=== PATIENT | male | born 1940 | race Caucasian/White ===

== ENCOUNTER 2024-09-21 06:24 | Day surgery (SDC) | payer MEDICARE ==
[~2024-09-21] VITALS: Ht 182.9 cm; Wt 79.6 kg
[2024-09-21] MEDS ORDERED: Loratadine10 MG (07:00)
[2024-09-21] MEDS ORDERED: ASPI81CH (07:00)
[2024-09-21] MEDS ORDERED: METO25 (07:01)
[2024-09-21] MEDS ORDERED: ROSUVASTATIN (07:02)
[2024-09-21] MEDS ORDERED: Lactated Ringer's 1,000 ML IV ONE ×2 (07:30→07:41)
[2024-09-21] MEDS ORDERED: propofoL 50 ML IV ONE (07:30)
== END 2024-09-21 09:10 | disposition home or self-care (01) ==
LOC: ORSCSDS 06:24
PROVIDERS: Internal Medicine Gastroenterology
PROC: 0DJ08ZZ Inspection of Upper Intestinal Tract, Via Natural or Artificial Opening Endoscopic (ICD-10-PCS; principal; 2024-09-21 08:00)
DX: R13.10 Dysphagia, unspecified (principal); Z85.819 Personal history of malignant neoplasm of unspecified site of lip, oral cavity, and pharynx; R63.4 Abnormal weight loss; K21.9 Gastro-esophageal reflux disease without esophagitis; K59.00 Constipation, unspecified; Z79.82 Long term (current) use of aspirin; Z79.899 Other long term (current) drug therapy
CPT/HCPCS: C1769; J2704; J7120

== ENCOUNTER 2024-10-30 16:55 | Inpatient (IN) | payer MEDICARE ==
[~2024-10-30] VITALS: Ht 180.3 cm; Wt 74.8 kg
[~2024-10-30 16:55] MED LIST: ASPI81CH; Loratadine10 MG; METO25; ROSUVASTATIN
[2024-10-30 17:37] LABS: BASOPHILS ABSOLUTE AUTO 0.06 K/mm3 (0.00-0.23); BASOPHILS PERCENT AUTO 1 % (0-2); EOSINOPHILS ABSOLUTE AUTO 0.21 K/mm3 (0.00-0.68); EOSINOPHILS PERCENT AUTO 2 % (0-6); Hematocrit 34.4 % (37.0-53.0); Hemoglobin 11.6 g/dL (13.5-17.5); IMMATURE GRAN ABSOLUTE AUTO 0.03 K/mm3 (0.00-0.10); IMMATURE GRAN PERCENT AUTO 0 % (0-1); LYMPHOCYTES PERCENT AUTO 11 % (21-46); MONOCYTES ABSOLUTE AUTO 0.73 K/mm3 (0.16-1.47); MONOCYTES PERCENT AUTO 7 % (4-13); Mean Corpuscular HGB 31.4 pg (26.0-34.0); Mean Corpuscular HGB Conc 33.7 g/dL (31.5-36.5); Mean Corpuscular Volume 93 fL (80-100); Mean Platelet Volume 9.7 fL (9.1-12.4); NEUTROPHILS PERCENT AUTO 78 % (41-73); Platelet Count 290 K/mm3 (150-400); RDW Coefficient Variation 12.2 % (11.7-14.2); RDW Standard Deviation 41.9 fL (35.1-46.3); Red Blood Cell Count 3.69 M/mm3 (4.30-5.90); White Blood Cell Count 9.83 K/mm3 (4.00-11.30)
[2024-10-30 17:52] LABS: Albumin, Blood 3.4 g/dL (3.4-5.0); Albumin/Globulin Ratio 0.8 (0.8-1.8); Bilirubin, Total 0.4 mg/dL (0.1-1.0); Bun/Creatinine Ratio 23.2 (12.0-20.0); Calcium, Blood 10.2 mg/dL (8.5-10.1); Creatinine, Blood 1.12 mg/dL (0.60-1.20); Globulin, Blood 4.3 g/dL (2.2-4.0); Potassium, Blood 3.7 mmol/L (3.5-5.5); Total Protein, Blood 7.7 g/dL (6.4-8.2)
[2024-10-30 18:10] LABS: International Normalized Ratio 1.04; Prothrombin Time Results 11.1 Sec (9.7-11.5)
[2024-10-30 18:16] LABS: Free Thyroxine 0.96 ng/dL (0.70-1.60); Magnesium, Blood 1.9 mg/dL (1.6-2.4)
[2024-10-30 18:19] LABS: Thyroid Stimulating Hormone 1.45 uIU/mL (0.360-4.800)
[2024-10-30 18:37] LABS: CORONAVIRUS COVID-19 AG Negative (NEGATIVE); INFLUENZA A AG Negative (NEGATIVE); INFLUENZA B AG Negative (NEGATIVE)
[2024-10-30] MEDS ORDERED: Ketorolac Tromethamine 15mg Vial IV ONE (20:00)
[2024-10-30 20:02] LABS: Source, Urine Clean Catch
[2024-10-30 20:14] LABS: Bilirubin, Urine Neg (Neg); Blood, Urine Neg (Neg); Glucose Qualitative, Urine Neg (Neg); Ketones, Urine Neg (Neg); Leukocyte Esterase, Urine Neg (Neg); Nitrite, Urine Neg (Neg); Protein, Urine Neg (Neg); Urobilinogen, Urine 1+ (Normal)
[2024-10-30 20:15] LABS: Appearance, Urine Clear (Clear); Color, Urine Yellow (P-Yellow)
[2024-10-30] MEDS ORDERED: Acetaminophen 325 MG TABLET PO PRN (21:05)
[2024-10-30] MEDS ORDERED: Ondansetron HCl 2 MG / ML 2ML Vial IV PRN (21:05)
[2024-10-30] MEDS ORDERED: FLU VACC TS2024-25(6MOS UP)/PF 45 MCG/0.5 ML SYRINGE IM ONE (21:10)
[2024-10-30] MEDS ORDERED: Lactated Ringer's 1,000 ML IV SCH (22:00)
[2024-10-30 22:55] VITALS: BP 127/74
[2024-10-30] MEDS ORDERED: Potassium Phosphate Dibasic 15 MM in Dextrose 5% 250 ML IV ONE (23:40)
[2024-10-31 05:20] VITALS: BP 119/65
[2024-10-31 06:51] LABS: BASOPHILS ABSOLUTE AUTO 0.08 K/mm3 (0.00-0.23); BASOPHILS PERCENT AUTO 1 % (0-2); EOSINOPHILS ABSOLUTE AUTO 0.28 K/mm3 (0.00-0.68); EOSINOPHILS PERCENT AUTO 4 % (0-6); Hematocrit 30.3 % (37.0-53.0); Hemoglobin 10.3 g/dL (13.5-17.5); IMMATURE GRAN ABSOLUTE AUTO 0.02 K/mm3 (0.00-0.10); IMMATURE GRAN PERCENT AUTO 0 % (0-1); LYMPHOCYTES ABSOLUTE AUTO 1.09 K/mm3 (0.84-5.20); LYMPHOCYTES PERCENT AUTO 15 % (21-46); MONOCYTES ABSOLUTE AUTO 0.73 K/mm3 (0.16-1.47); MONOCYTES PERCENT AUTO 10 % (4-13); Mean Corpuscular HGB 32.1 pg (26.0-34.0); Mean Corpuscular Volume 94 fL (80-100); Mean Platelet Volume 10.1 fL (9.1-12.4); NEUTROPHILS ABSOLUTE AUTO 5.03 K/mm3 (1.96-9.15); NEUTROPHILS PERCENT AUTO 70 % (41-73); Platelet Count 310 K/mm3 (150-400); RDW Coefficient Variation 12.5 % (11.7-14.2); RDW Standard Deviation 43.2 fL (35.1-46.3); Red Blood Cell Count 3.21 M/mm3 (4.30-5.90); White Blood Cell Count 7.23 K/mm3 (4.00-11.30)
[2024-10-31 07:10] VITALS: BP 117/63
[2024-10-31 07:19] LABS: Alanine Aminotransfer (ALT/SGP 14 U/L (12-78); Albumin, Blood 3.3 g/dL (3.4-5.0); Albumin/Globulin Ratio 0.8 (0.8-1.8); Alk Phos 85 U/L (50-136); Anion Gap 9 mmol/L (3-11); Aspartate Aminotrans (AST/SGOT 13 U/L (12-37); Bilirubin, Total 0.4 mg/dL (0.1-1.0); Blood Urea Nitrogen 25 mg/dL (8-24); Bun/Creatinine Ratio 22.9 (12.0-20.0); CHOL/HDL RATIO 2.2; CO2, Blood 27 mmol/L (21-32); Calcium, Blood 10.3 mg/dL (8.5-10.1); Chloride, Blood 104 mmol/L (98-108); Cholesterol 95 mg/dL (50-200); Creatinine, Blood 1.09 mg/dL (0.60-1.20); Glomerular Filtration Rate 68 (60-); Glucose, Blood 100 mg/dL (70-99); HDL Cholesterol 43 mg/dL (>39); LDL/HDL RATIO 0.9; Low Density Lipoprotein Chol 39 mg/dL (0-110); Magnesium, Blood 2.1 mg/dL (1.6-2.4); Phosphorus, Blood 3.9 mg/dL (2.5-4.9); Sodium, Blood 136 mmol/L (136-145); Total Protein, Blood 7.3 g/dL (6.4-8.2); Triglycerides 67 mg/dL (30-160); Very Low Density Lipoprot Chol 13 mg/dL (6-32)
[2024-10-31] MEDS ORDERED: Enoxaparin 40 MG/0.4 ML SYR SC SCH (09:00)
[2024-10-31] MEDS ORDERED: Aspirin 81 MG Chew PO SCH (09:00)
[2024-10-31] MEDS ORDERED: Clopidogrel Bisulfate 75 MG Tab PO SCH (09:00)
[2024-10-31] MEDS ORDERED: Loratadine 10 MG Tab PO SCH (09:00)
[2024-10-31] MEDS ORDERED: Atorvastatin 40 MG Tab PO SCH (09:00)
[2024-10-31] MEDS ORDERED: Metoprolol Tartrate 25 MG Tab PO SCH (09:00)
[2024-10-31] MEDS ORDERED: LORazepam 2 MG/ML 1ML Injection IV ONE (09:15)
--- NOTE | 2024-10-31 14:07 | NUR ---
BEDSIDE SWALLOW SCREEN COMPLETED AT BEDSIDE. PT GIVEN WATER VIA SPOON. PT WAS ABLE TO SWALLOW BUT IMMEDIATELY BEGAN COUGHING UP FLUIDS AND SPITTING OUT. PT REPORTED WATER WOULD NOT GO DOWN. PT REPORTED HE CAN TAKE IN SMALL SIPS OF ENSURE AT HOME WITHOUT COUGHING OR CHOKING BUT IT TAKES HIM ALL DAY TO DRINK THE ENSURES. ATTEMPTED SMALL BITE OF APPLESAUCE TO SEE IF HE COULD DO BETTER WITH THICKER SUBSTANCES BUT AGAIN HE IMMEDIATELY COUGHED UP APPLESAUCE AND SPIT OUT AFTER SWALLOWING. PT ADVISED HE WILL NEED TO REMAIN NPO ACCEPT ORAL SWABS UNTIL EVALUATED BY SPEECH THERAPY FOR FURTHER RECOMMENDATIONS. PT V/U. SPOUSE WAS ALSO PRESENT. DISCUSSED GOALS OF CARE WITH PT. PT REPORTS HE WAS TOLD HE HAS A LUNG MASS AND WANTS TO FOLLOW-UP WITH ONCOLOGY BEFORE HE MAKES ANY DECISIONS. PT ALSO REPORTED HE MAY NEED A PEG TUBE PER WHAT ER DOCTOR HAD TOLD HIM. PT REPORTED HE HAD A PEG TUBE IN THE PAST. HE STATED HE WANTS TO KNOW WHAT ONCOLOGY RECOMMENDS PRIOR TO DECIDING IF HE WANTS A PEG TUBE. DR. ZAMARRIPA NOTIFIED OF BEDSIDE SWALLOW EVAL RESULTS. ORDERS PLACED.
[2024-10-31 15:22] VITALS: BP 119/49
[2024-10-31] MEDS ORDERED: HYDROmorphone HCl/Pf 1MG SYR IV PRN (17:00)
--- NOTE | 2024-10-31 18:11 | NUR ---
SHIFT SUMMARY: PT IS A/O X 4, SBA, PLEASANT AND COOPERATIVE WITH CARE. PT REPORTS PAIN TO LEFT SIDE OF FACE NECK AND STATES IT IS MORE LIKE AN EARACHE. HE REPORTS TORADOL GIVEN IN ER WAS INEFFECTIVE. ORDER RECEIVED FOR DILAUDID BUT PT DECLINED STATING IT'S NOT BAD ENOUGH AT THIS TIME FOR DILAUDID. PT HAS HAD IMPROVED SPEECH THROUGHOUT THE DAY. SLURRED SPEECH HAS IMPROVED. PT DECLINED NG TUBE TONIGHT STATING HE WANTS TO WAIT TO SEE WHAT SPEECH EVAL REVEALS TOMORROW BEFORE DECIDING TO GET NG TUBE FOR NUTRITION. PT USING ORAL SWABS FOR COMFORT. PT ABLE TO MAKE NEEDS KNOWN AT THIS TIME.
[2024-10-31 19:41] VITALS: BP 126/80
[2024-10-31] MEDS ORDERED: HydrALAZINE HCl 20 MG / ML 1ML Vial IV PRN (21:50)
[2024-11-01 05:14] VITALS: BP 97/58
--- NOTE | 2024-11-01 05:43 | NUR ---
SHIFT SUMMARY A&0X4, NPO , APPEARED TO BE RESTING WELL OVERNIGHT ON ROUNDS. VOIDED X2, AMBULATES W/ UNSTEADY GAIT-CALLS APPROPRIATELY FOR SBA ( TOOK CANE HOME), NO NEW NEURO CHANGES NOTED S/P LT SIDED ISCHEMIC CVA. C/O MILD PAIN IN LT NECK/FACE AREA R/T CA MASS & REFUSED TYLENOL SUPP OR IV DIALUDID FOR PAIN, UPSET THAT WE WONT LET HIM TAKE MEDS BY MOUTH ALTHOUGH VOICED UNDERSTANDING OF EXPLAINED RISKS AND RATIONAL FOR NPO. NSR ON TELEMETRY, CONTINUOUS OXIMETERY-SATS WDL, HAD A 14 BEAT RUN OF SVT ONCE AROUND 0330 PER INSTRUCTIONAL ASSISTANT. (ASYMPTOMATIC/SLEEPING) OTHERWISE NSR W/ HR 80s TO LOW 90s. LAST POTASSIUM & MG LEVELS NOTED TO BE WNL HAD A SOFT BP W/ EARLY A.M. VS OF 97/58. PT HAD VOICED THAT HE WANTS MORE INFORMATION REGARDING HIS PROGNOSIS BEFORE HE DECIDES WHETHER OR NOT TO GO FORWARD WITH A FEEDING TUBE.
[2024-11-01 05:55] LABS: BASOPHILS ABSOLUTE AUTO 0.07 K/mm3 (0.00-0.23); BASOPHILS PERCENT AUTO 1 % (0-2); EOSINOPHILS PERCENT AUTO 3 % (0-6); Hematocrit 33.3 % (37.0-53.0); Hemoglobin 11.2 g/dL (13.5-17.5); IMMATURE GRAN ABSOLUTE AUTO 0.02 K/mm3 (0.00-0.10); IMMATURE GRAN PERCENT AUTO 0 % (0-1); LYMPHOCYTES ABSOLUTE AUTO 0.96 K/mm3 (0.84-5.20); LYMPHOCYTES PERCENT AUTO 14 % (21-46); MONOCYTES ABSOLUTE AUTO 0.65 K/mm3 (0.16-1.47); MONOCYTES PERCENT AUTO 9 % (4-13); Mean Corpuscular HGB 31.5 pg (26.0-34.0); Mean Corpuscular HGB Conc 33.6 g/dL (31.5-36.5); Mean Corpuscular Volume 94 fL (80-100); NEUTROPHILS ABSOLUTE AUTO 5.22 K/mm3 (1.96-9.15); NEUTROPHILS PERCENT AUTO 73 % (41-73); Platelet Count 289 K/mm3 (150-400); RDW Coefficient Variation 12.1 % (11.7-14.2); RDW Standard Deviation 41.9 fL (35.1-46.3); Red Blood Cell Count 3.56 M/mm3 (4.30-5.90); White Blood Cell Count 7.12 K/mm3 (4.00-11.30)
[2024-11-01 06:32] LABS: Albumin, Blood 3.2 g/dL (3.4-5.0); Albumin/Globulin Ratio 0.7 (0.8-1.8); Bilirubin, Total 0.5 mg/dL (0.1-1.0); Calcium, Blood 10.2 mg/dL (8.5-10.1); Creatinine, Blood 0.95 mg/dL (0.60-1.20); Globulin, Blood 4.4 g/dL (2.2-4.0); Potassium, Blood 3.7 mmol/L (3.5-5.5); Total Protein, Blood 7.6 g/dL (6.4-8.2)
[2024-11-01 07:33] VITALS: BP 98/61
[2024-11-01] MEDS ORDERED: Aspirin 300 MG Supp PR SCH (09:00)
[2024-11-01] MEDS ORDERED: NS 1,000 ML IV SCH (12:05)
[2024-11-01 15:03] VITALS: BP 91/55
--- NOTE | 2024-11-01 17:59 | NUR ---
SUMMARY NO ACUTE CHANGES THIS SHIFT. IV FLUIDS RESTARTED, NO NEW DEFICITS NOTED, PT REFUSED SHOWER, PT IS OPTING FOR PEG TUB, NPO.
[2024-11-01 20:02] VITALS: BP 106/53
--- NOTE | 2024-11-02 04:00 | NUR ---
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 MAKES NEEDS KNOWN TO STAFF. USES CALL LIGHT APPROPRIATELY. PT ADMITTED FOR L SIDED ISCHEMIC CVA. PT NOTED TO HAVE R FACIAL DRROP. PT NPO. NS INFUSING AT 150ML/HR. PLAN IS TO GET PEG TUBE FOR NUTRITION. PT TO IMAGING FOR CT CHEST/ ABD / PELVIS WITH CONTRAST. NSR ON TELEMETRY. PRN IV DILAUDED AND ZOFRAN GIVEN X1, EFFEECTIVE. VSS. PT INDEPENDENT WITH BED MOBILITY, SBA WITH TRANSFERS. NO ACUTE CHANGES NOTED THIS SHIFT. BED IN LOWEST POSITION. CALL LIGHT IN REACH. CARES CONTINUE ORDERED.
[2024-11-02 04:40] VITALS: BP 102/51
[2024-11-02 06:04] LABS: BASOPHILS ABSOLUTE AUTO 0.05 K/mm3 (0.00-0.23); BASOPHILS PERCENT AUTO 1 % (0-2); EOSINOPHILS ABSOLUTE AUTO 0.07 K/mm3 (0.00-0.68); EOSINOPHILS PERCENT AUTO 1 % (0-6); Hematocrit 31.9 % (37.0-53.0); Hemoglobin 10.7 g/dL (13.5-17.5); IMMATURE GRAN ABSOLUTE AUTO 0.01 K/mm3 (0.00-0.10); IMMATURE GRAN PERCENT AUTO 0 % (0-1); LYMPHOCYTES ABSOLUTE AUTO 0.98 K/mm3 (0.84-5.20); LYMPHOCYTES PERCENT AUTO 14 % (21-46); MONOCYTES ABSOLUTE AUTO 0.64 K/mm3 (0.16-1.47); MONOCYTES PERCENT AUTO 9 % (4-13); Mean Corpuscular HGB 31.8 pg (26.0-34.0); Mean Corpuscular HGB Conc 33.5 g/dL (31.5-36.5); Mean Corpuscular Volume 95 fL (80-100); Mean Platelet Volume 9.7 fL (9.1-12.4); NEUTROPHILS ABSOLUTE AUTO 5.33 K/mm3 (1.96-9.15); NEUTROPHILS PERCENT AUTO 75 % (41-73); Platelet Count 277 K/mm3 (150-400); RDW Coefficient Variation 12.2 % (11.7-14.2); RDW Standard Deviation 42.2 fL (35.1-46.3); Red Blood Cell Count 3.36 M/mm3 (4.30-5.90); White Blood Cell Count 7.08 K/mm3 (4.00-11.30)
[2024-11-02 06:38] LABS: Anion Gap 12 mmol/L (3-11); Blood Urea Nitrogen 22 mg/dL (8-24); Bun/Creatinine Ratio 23.2 (12.0-20.0); CO2, Blood 24 mmol/L (21-32); Calcium, Blood 9.9 mg/dL (8.5-10.1); Chloride, Blood 108 mmol/L (98-108); Creatinine, Blood 0.95 mg/dL (0.60-1.20); Glomerular Filtration Rate 80 (60-); Glucose, Blood 101 mg/dL (70-99); Phosphorus, Blood 2.7 mg/dL (2.5-4.9); Sodium, Blood 140 mmol/L (136-145)
[2024-11-02 08:06] VITALS: BP 120/64
--- NOTE | 2024-11-02 12:27 | NUR ---
AT REQUEST FROM DR ARTEAGA, CALLED DR STAUFFER OFC. HE TO COME SEE PT.
[2024-11-02] MEDS ORDERED: HYDROMORPHO1 MG/119 PO (15:03)
--- NOTE | 2024-11-02 15:37 | NUR ---
GOALS OF CARE VISIT THIS PC RN JOINED VISIT WHILE DR. STAUFFER WAS IN ROOM WITH PT AND PT'S SPOUSE REVIEWING DX, PROGNOSIS AND TX OPTIONS. MALIKA REPORTS NAUSEA HAS BEEN DIFFICULT TO MANAGE. HE HAS UNINTENTIONAL WT LOSS OVER THE LAST COUPLE OF MONTHS. DIFFICULTY SWALLOWING AND HAS BEEN FOLLOWING A VERY SOFT - FULL LIQUID DIET. GIVES FOOD INTAKE HAS CONSISTED OF HIGH CALORIE BOOST SHAKES, MASHED POTATOES, PUDDINGS, ECT. CONSTANT HEADACHED IN THE LAST MONTH. HEADACHES WERE MANAGED WITH TYLENOL AND IBUPROFEN FOR AWHILE. PRIOR TO ADMISSION TO HOSPITAL, NEXT/HEAD PAIN NOT WELL CONTROLLED AT HOME. PAIN IS CURRENTLY BEING MANAGED WITH 0.5-1 MG OF HYDROMORPHONE. ZOFRAN IS BEING UTILIZED WITH HYDROMORPHONE D/T NAUSEA. PT AND SPOUSE ELECT TO D/C HOME WITH HOSPICE IN LUE OF [facility]. MALIKA REPORTS BEING COMFORTABLE AT HOME IS HIS GOAL. BOTH PT AND INQUIRED ABOUT D/C HOME TODAY 11/02/24. THIS PC RN REVIEWED REQUEST RE: D/C HOME TODAY 11/02/24 WITH PROVIDER. PLAN IS FOR PT TO D/C HOME TODAY 11/01 AND ADMIT TO [facility] TOMORROW 11/02. UPDATES PROVIDED TO PRIMARY RN AND CARE MANAGEMENT.
--- NOTE | 2024-11-02 16:32 | NUR ---
DISCHARGE REVIEWED WITH PT AND SPOUSE.. IV PULLED BY AIDE. TELE REMOVED AND RETURNED. PT HAS ALREADY BEEN CALLED BY [facility]. PT WHEELED TO DOOR AT 1632
== END 2024-11-02 16:55 | disposition hospice, home (50) | DRG 65 ==
LOC: ER 16:55 → MEDS 16:56
PROVIDERS: Family Medicine; Internal Medicine; Physician Assistant; Student in an Organized Health Care Education/Training Program; ADMIT Student in an Organized Health Care Education/Training Program
DX: I63.9 Cerebral infarction, unspecified (principal); C78.01 Secondary malignant neoplasm of right lung; G50.0 Trigeminal neuralgia; R29.810 Facial weakness; R47.81 Slurred speech; K22.89 Other specified disease of esophagus; R62.7 Adult failure to thrive; Z66 Do not resuscitate; Z51.5 Encounter for palliative care; Z68.23 Body mass index [BMI] 23.0-23.9, adult; D63.8 Anemia in other chronic diseases classified elsewhere; E83.39 Other disorders of phosphorus metabolism; F40.240 Claustrophobia; R29.704 NIHSS score 4; I25.10 Atherosclerotic heart disease of native coronary artery without angina pectoris; R13.10 Dysphagia, unspecified; C10.8 Malignant neoplasm of overlapping sites of oropharynx; R63.4 Abnormal weight loss; E04.2 Nontoxic multinodular goiter; E78.5 Hyperlipidemia, unspecified; I10 Essential (primary) hypertension; K21.9 Gastro-esophageal reflux disease without esophagitis; Z98.890 Other specified postprocedural states; Z87.891 Personal history of nicotine dependence; Z79.82 Long term (current) use of aspirin; Z88.5 Allergy status to narcotic agent; Z79.899 Other long term (current) drug therapy
CPT/HCPCS: 36415; 70450; 70496; 70498; 70551; 71045; 71260; 74177; 80053; 80061; 80069; 81003; 82947; 83735; 84100; 84439; 84443; 84484; 85025; 85610; 85730; 87428-QW; 92610; 93005; 93010; 93306; 94762; 96361; 96365; 96366; 96372; 96374-59; 96375; 96375-59; 99285-25; A9270; G0378; J1171; J1650; J1885; J2060; J2405; J7030; J7060; J7120; Q9967